=== PATIENT | female | born 1985 | race Caucasian/White ===

== ENCOUNTER → 2016-10-06 | Outpatient (CLI) | payer BC ==
[2016-10-06 15:57] LABS: EKG EKG PERFORMED
[2016-10-06 16:56] LABS: Basophils % (A) 0 %; CHCM 32.2; Eosinophils # (A) 0.2 k/uL (0-0.7); Eosinophils % (A) 2 %; HCT 35.3 % (34.0-46.0); HDW 3.08; HGB 11.6 gm/dL (11.4-16.0); Hypochromasia Slight; Luc # (Auto) 0.12; Luc % (Auto) 1; Lymphocytes # (A) 2.3 k/uL (1.0-4.8); Lymphocytes % (A) 24 %; MCH 25.7 pg (25.0-35.0); MCHC 32.9 g/dL (31.0-37.0); MCV 77.9 fL (80.0-100.0); Mean Platelet Volume 7.2; Monocytes # (A) 0.3 k/uL (0-1.0); Monocytes % (A) 3 %; Neutrophils # (A) 6.6 k/uL (1.3-7.7); Neutrophils % (A) 69 %; RBC 4.53 m/uL (3.80-5.40); WBC 9.6 k/uL (3.8-10.6); WBC (Perox) 10.27
[2016-10-06 17:12] LABS: Anion Gap 12 mmol/L; Blood Urea Nitrogen 19 mg/dL (7-17); Carbon Dioxide 24 mmol/L (22-30); Chloride 105 mmol/L (98-107); Glucose 96 mg/dL (74-99); Non-African American GFR(MDRD) 51 (>60 ml/min/1.73 sqM); Potassium 5.2 mmol/L (3.5-5.1); Sodium 141 mmol/L (137-145)
== END | disposition home or self-care (01) ==
LOC: LABPAT 15:46
PROVIDERS: ATTEND Obstetrics & Gynecology
DX: Z01.810 Encounter for preprocedural cardiovascular examination (principal); Z01.812 Encounter for preprocedural laboratory examination; I10 Essential (primary) hypertension
CPT/HCPCS: 80051; 82565; 82947; 84520; 85025; 86850; 86900; 86901; 87086; 93005

== ENCOUNTER 2016-10-16 07:54 | Observation (INO) | payer BC ==
[2016-10-12 09:20] VITALS: BMI 38.4
--- NOTE | 2016-10-15 10:07 | HP ---
DATE OF ADMISSION: HISTORY OF PRESENT ILLNESS: The patient is a 31-year-old 0, para 0 who initially presented to the office months ago complaining of symptoms of significant uterine prolapse. She carries a history of renal failure and subsequent renal transplant from which she is doing well, but is on her routine immunosuppressive drugs. I was at the initial visit unable to document significant prolapse and reassured her. She nonetheless continued to persist and return to the office recently with a picture of the cervix appearing at the opening of the vagina. At that time, a tenaculum was applied to the cervix and gentle downward pressure applied at which time she was noted to have significant prolapse to at least grade 3. She is not now nor will she ever be interested in childbearing and has had a tubal ligation in place for more than 10 years secondary to her renal failure and subsequent transplant as well as continued immunosuppression. She is asking for definitive treatment with vaginal hysterectomy. PAST MEDICAL HISTORY: Significant for hypertension, anemia, renal failure. PAST SURGICAL HISTORY: Significant for adenoidectomy at age 14. She had a fistula repaired for ongoing dialysis. She had her renal transplant a number of years ago and had underwent a laparoscopic tubal ligation in 2005. OBSTETRICAL HISTORY: 0, para 0 with a tubal ligation in place for contraception. GYNECOLOGIC HISTORY: Unremarkable with no history of any infections to include STDs. FAMILY HISTORY: Noncontributory. SOCIAL HISTORY: The patient is and works as a nurse at [employer]. She is a nonsmoker and reports minimal to no alcohol. There are no other social concerns. Current medications include: 1. Allopurinol daily. 2. CellCept daily. 3. Cipro as needed. 4. Lopressor daily. 5. Lotrisone topical cream p.r.n. 6. Norvasc daily. 7. Omeprazole daily. 8. Prograf 1 mg daily. ALLERGIES: CODEINE caused hallucinations, NONSTEROIDALS including TORADOL as well as ULTRAM caused nausea and vomiting. REVIEW OF SYSTEMS: Confined to history of present illness. PHYSICAL EXAMINATION: Vital signs are stable and the patient is afebrile. In general, this is a moderately obese, white female in no acute distress. HEENT demonstrates PERRLA, EOMI. Her oropharynx is clear. Her neck is supple and without adenopathy and the thyroid is normal to palpation. Her heart has a regular rhythm and rate without murmur. Her lungs are clear to auscultation bilaterally in all marshall. Her abdomen is obese, nondistended, has normoactive bowel sounds, is soft, nontender, and without any palpable masses, hepatosplenomegaly or hernias. Her extremities are without any cyanosis, clubbing or significant edema and are nontender to palpation bilaterally. Pelvic examination demonstrates normal external genitalia and BUS with normal vaginal mucosa and cervix. There is no cervical motion tenderness. The uterus is 4 to 5 weeks in size, slightly anteverted, mobile, nontender, and normal in shape. Application of a tenaculum to the cervix demonstrates grade 3 uterine prolapse. ASSESSMENT AND PLAN: Grade 3 symptomatic uterine prolapse: We did discuss potential alternatives, and the patient has requested definitive therapy with vaginal hysterectomy. The risks and complications were discussed at length to include bleeding, bleeding requiring transfusion, infection, and injury to local structures to include the bowel, bladder and ureters. We discussed the issue of the ureters in detail given the history of a renal transplant for which her transplant doctor provided me with a diagram of placement of the kidney as well as ureteral placement within the bladder in the dome. These should not be in any particular danger from routine vaginal hysterectomy. She will be cleared by her kidney specialist prior to surgery. She has understood all of these concerns and does agree to proceed. We are scheduled for the morning of October 16, 2016.
[~2016-10-16 07:54] MED LIST: DEXAMETHASONE SOD PHOSPHATE 10 MG/ML 1 ML VIAL IV ONE; FAMOTIDINE 20 MG/2 ML VIAL IV PRN; LACTATED RINGERS 1,000 ML IV SCH; LIDOCAINE 1% 20 ML VIAL (10MG/ML) FOR IV START INTRADERMA PRN; MIDAZOLAM 2 MG/2 ML VIAL IV PRN; ONDANSETRON 4 MG/2 ML VIAL IVP ONE; ceFAZolin 2 GM in SODIUM CHLORIDE 0.9% 100 ML IVPB ONE
[2016-10-16] MEDS ORDERED: LIDOCAINE 1% 20 ML VIAL (10MG/ML) FOR IV START IV ONE (08:18)
[2016-10-16] MEDS ORDERED: HYDROmorphone (PF) 1 MG/ML ONE (09:52)
[2016-10-16] MEDS ORDERED: SUCCINYLCHOLINE CHLORIDE 100 MG/5 ML SYR IV ONE (09:52)
[2016-10-16] MEDS ORDERED: MIDAZOLAM 2 MG/2 ML VIAL ONE (09:52)
[2016-10-16] MEDS ORDERED: PROPOFOL 10 MG/ML 20 ML VIAL IV ONE (09:52)
[2016-10-16] MEDS ORDERED: fentaNYL (PF) 50 MCG/ML 2 ML AMP ONE (09:52)
[2016-10-16] MEDS ORDERED: VASOPRESSIN 20 UNIT/ML 1 ML VIAL SQ ONE (10:18)
[2016-10-16] MEDS ORDERED: BACITRACIN 500 UNIT/GM OINT 28.4 GM TUBE TOPICAL ONE (10:18)
[2016-10-16] MEDS ORDERED: LACTATED RINGERS 1,000 ML IV ONE (10:47)
[2016-10-16] MEDS ORDERED: SIMETHICONE 80 MG CHEWABLE PO PRN (11:05)
[2016-10-16] MEDS ORDERED: ONDANSETRON 4 MG/2 ML VIAL IVP PRN (11:05)
[2016-10-16] MEDS ORDERED: diphenhydrAMINE 50 MG/ML 1 ML VIAL IVP PRN (11:05)
[2016-10-16] MEDS ORDERED: METOCLOPRAMIDE 5 MG/ML 2 ML VIAL IVP PRN (11:05)
[2016-10-16] MEDS: HYDROmorphone 1 MG/ML 1 ML SYRINGE IVP PRN ×4 (11:10→12:32)
[2016-10-16] MEDS ORDERED: HYDROcodone/APAP 5-325MG 1 EACH TAB PO PRN ×2 (11:11)
[2016-10-16] MEDS ORDERED: NALOXONE 0.4 MG/ML 1 ML VIAL IV PRN (11:12)
--- NOTE | 2016-10-16 11:24 | P.OP ---
Date of Procedure: 10/16/16 Preoperative Diagnosis: #1. Symptomatic uterine prolapse Postoperative Diagnosis: Same plus #2. Fibroid uterus Procedure(s) Performed: Vaginal hysterectomy Anesthesia: MATTYA Surgeon: Pastor García Comb Setter #1: Coty Arango Estimated Blood Loss (ml): 150 IV fluids (ml): 1,500 Urine output (ml): 100 Pathology: other (Uterus) Condition: stable Disposition: PACU Operative Findings: pelvic examination demonstrated a roughly 5 week of uterus with cervical prolapse to +3 station or further. Intraoperatively, the uterus was found to be markedly larger than appreciated on pelvic examination. The size was closer to 7-8 weeks' size with multiple uterine fibroids in the fundus of the uterus. The bilateral ovaries appeared normal. There was no significant degree of cystocele or rectocele. Description of Procedure: The patient was prepped and draped in usual fashion after general endotracheal anesthesia was admission by the anesthesiologist. A weighted speculum was placed and the cervix grasped with a single-tooth tenaculum. The cervicovaginal mucosa was infused with diluted vasopressin solution after draining the bladder of approximately 50 mL of clear sahara urine. The cervicovaginal mucosa was incised circumferentially and reflected distally both bluntly and sharply. The posterior peritoneum was identified and incised sharply with the Mercado scissors then tagged with a stitch of 2-0 Vicryl for later use. The short weighted speculum was replaced with the long weighted speculum. The uterosacral ligaments were clamped bilaterally with the curved Shakira-Darwin clamps, cut, and suture-ligated with a transfixion stitch of 0 Vicryl. Serial bites were taken up the cardinal ligament towards the utero- ovarian ligaments on each side staying very close to the uterus using curved Shakira-Darwin clamps. Each pedicle was cut and suture-ligated with a transfixion stitch of 0 Vicryl. The bladder peritoneum had been reflected distally early on in the dissection. After approximately 4 or 5 bites bilaterally, the fundus of the uterus was grasped posteriorly with a tenaculum and the inverted posteriorly allowing isolation of the utero-ovarian pedicles on each side. The bladder peritoneum was then opened sharply to isolate each pedicle. They were each clamped with curved Shakira-Darwin clamps, cut, and suture-ligated with a transfixion stitch of 0 Vicryl followed by a free tie of 0 Vicryl. Each was carefully examined and hemostasis was excellent prior to releasing them. The ovaries were also examined. There is a small spot of bleeding on one of the capsules of the ovary, possibly from ovulation which was cauterized prior to releasing and into the abdomen. The long weighted speculum was replaced with the short weighted speculum and the parietal peritoneum closed with the previously placed stitch of 2-0 Vicryl in a pursestring fashion. The vascular pedicles were reexamined and found to be hemostatic. There was some ongoing bleeding at the margin of the cuff. This would be controlled with closure of the cuff. The uterosacral ligaments were passed through the opposite the side uterosacral ligament and mucosa bilaterally in a modified Brenner's culdoplasty. The remaining open vaginal mucosa was closed with interrupted [id number] stitches of 0 Vicryl. After removal of the weighted speculum, there was a spot noted at the hymeneal ring posteriorly that was lacerated and bleeding slightly. Was made hemostatic with the Bovie and a single [id number] stitch of 2-0 Vicryl. A Landon catheter was placed demonstrate in clear sahara urine. The vagina was then packed with one-inch iodoform gauze covered with bacitracin ointment. Estimated blood loss for the case is approximately 150 mL. There were no complications. All sponge, instrument, and needle counts were correct. The patient tolerated the procedure well and proceeded to the recovery room in stable condition.
[2016-10-16] MEDS ORDERED: SODIUM CHLORIDE 0.9% 1,000 ML IV ONE (12:30)
[2016-10-16] MEDS: HYDROmorphone PCA 5 MG/25 ML SYRINGE IV PRN (12:55)
[2016-10-16] MEDS: LACTATED RINGERS 1,000 ML IV SCH ×2 (20:26→20:52)
[2016-10-17] MEDS: SENNOSIDES-DOCUSATE SODIUM 1 EACH TAB PO SCH ×2 (00:05→08:29)
[2016-10-17] MEDS: HYDROmorphone PCA 5 MG/25 ML SYRINGE IV PRN (00:36)
[2016-10-17] MEDS: LACTATED RINGERS 1,000 ML IV SCH (04:07)
[2016-10-17 08:03] LABS: Basophils % (A) 0 %; CH 25.4; CHCM 31.1; Eosinophils % (A) 0 %; HDW 2.79; Hypochromasia Moderate; Luc # (Auto) 0.12; Luc % (Auto) 1; Lymphocytes % (A) 21 %; MCH 26.1 pg (25.0-35.0); MCHC 31.7 g/dL (31.0-37.0); MCV 82.1 fL (80.0-100.0); Mean Platelet Volume 8.2; Monocytes # (A) 0.3 k/uL (0-1.0); Monocytes % (A) 3 %; Neutrophils # (A) 7.1 k/uL (1.3-7.7); Neutrophils % (A) 75 %; RBC 3.78 m/uL (3.80-5.40); RDW 14.3 % (11.5-15.5); WBC 9.5 k/uL (3.8-10.6); WBC (Perox) 9.84
[2016-10-17 08:04] LABS: HGB 9.8 gm/dL (11.4-16.0)
[2016-10-17 08:18] LABS: Calcium 9.4 mg/dL (8.4-10.2); Potassium 4.4 mmol/L (3.5-5.1); Total Bilirubin 0.6 mg/dL (0.2-1.3); Total Protein 6.2 g/dL (6.3-8.2)
[2016-10-17 08:33] VITALS: RESP 14
[2016-10-17] MEDS ORDERED: ACETAMINOPHEN TAB 325 MG TAB PO PRN (11:09)
--- NOTE | 2016-10-17 11:14 | P.DS ---
Providers Date of admission: 10/16/16 19:26 Expected date of discharge: 10/17/16 Attending physician: Pastor García Primary care physician: Janes Kang - Discharge Diagnosis(es) (1) Renal transplant recipient Current Visit: Yes Status: Acute (2) Uterine prolapse Current Visit: Yes Status: Acute (3) Fibroid uterus Current Visit: Yes Status: Acute Hospital Course: The patient is a 31-year-old 0 para 0 who presented to the office the approximately 9-12 months ago complaining of symptomatic prolapse. She reported that she could feel the cervix at the opening of the vagina. Examination in the office failed to demonstrate any significant prolapse at that time she returned on another 1 or 2 occasions at which time similar complaints were noted but no findings on pelvic exam. At her most recent visit she presented with a cell phone picture of her cervix protruding from the vagina at which time I opted to place a tenaculum on the cervix and was able to demonstrate significant descensus to grade 3+. Given her history of renal transplant and tubal ligation many years ago, she asked for definitive treatment with vaginal hysterectomy. She denies any desire for potential childbearing. She was taken to the operating room where she underwent a vaginal hysterectomy and the relatively uncomplicated fashion. The uterus was somewhat larger intraoperatively than was anticipated or perceived with preop pelvic examination. Nonetheless, the procedure was uncomplicated in nature. The bilateral ovaries appeared normal. Her postoperative course was also unremarkable. She continued with aggressive IV hydration in the postoperative phase and her pain was controlled with a METAPHYSICS TEACHER. This was removed on the morning of postoperative day #1 at which time she was able to tolerate her pain with oral pain medications. She was tolerating regular diet by the morning of postoperative day #1 and was ambulatory as well. She was deemed stable for discharge by the afternoon or early evening of postoperative day #1 was discharged home to follow-up in the office in 2 weeks for a recheck and 6 weeks routinely. Her renal function on postoperative day #1 was noted to remain stable as were all of her other labs. Discharge instructions included calling for any significantly increased vaginal bleeding, pain, fever, urinary or GI concerns, or anything else that concerned her. She is additionally instructed to have nothing in the vagina for at least 6 weeks time to include intercourse and to be cautious with lifting as it might cause discomfort. She was last instructed to do no driving until off of all pain medications, or 2 weeks' time , whichever came first. She understood her instructions and agrees to follow up as noted above. Discharge medications included all of her usual home medications and immunosuppressants. She was provided with a prescription for [place] 5/325 mg, 1-2 by mouth every 6 hours when necessary pain, #30 dispensed with no refills. Discharge hemoglobin and hematocrit were 9.8 and 31.0 respectively. Discharge BUN/creatinine and creatinine were 17 and 1.27 respectively. Procedures: #1. Vaginal hysterectomy Patient Condition at Discharge: Stable Plan - Discharge Summary Discharge Medication List Albuterol Inhaler [Ventolin Hfa Inhaler] 2 puff INHALATION DAILY PRN 10/12/16 [ History] Allopurinol [Zyloprim] 100 mg PO HS 10/12/16 [History] Ciprofloxacin HCl [Cipro] 250 mg PO DAILY 10/12/16 [History] Metoprolol Tartrate [Lopressor] 50 mg PO BID 10/12/16 [History] Mycophenolate Mofetil [Cellcept] 1 gm PO BID 10/12/16 [History] Omeprazole 20 mg PO DAILY 10/12/16 [History] Tacrolimus [Prograf] 3 mg PO BID 10/12/16 [History] amLODIPine [Norvasc] 2.5 mg PO 1400 10/12/16 [History] Follow up Appointment(s)/Referral(s): Pastor García MD [STAFF PHYSICIAN] - 2 Weeks Patient Instructions/Handouts: *Surgery [facility] - Scopalamine Patch Instructions Discharge Disposition: HOME SELF-CARE
[2016-10-17 15:26] VITALS: BP 117/78; PULSE 78; TEMP 98.7
== END 2016-10-17 15:41 | disposition home or self-care (01) ==
LOC: OR 07:54 → 4FBP 11:22 → OR 19:26
PROVIDERS: ADMIT Obstetrics & Gynecology; ATTEND Obstetrics & Gynecology
DX: N81.2 Incomplete uterovaginal prolapse (principal); D25.9 Leiomyoma of uterus, unspecified; Z94.0 Kidney transplant status; I10 Essential (primary) hypertension; Z79.899 Other long term (current) drug therapy; Z88.5 Allergy status to narcotic agent; Z88.8 Allergy status to other drugs, medicaments and biological substances; E66.9 Obesity, unspecified
CPT/HCPCS: 81025; 80053; 84132; 85025; 88307; 58290; G0378 ×2; J2250; J1100; J2765; J0690; J2405; J3010; J1170 ×3; J0330; J2704; 86850; 86900; 86901; 96361; 96374

== ENCOUNTER → 2016-10-27 | Outpatient (CLI) | payer BC ==
[2016-10-27 17:23] LABS: Basophils % (A) 0 %; CHCM 31.6; Eosinophils # (A) 0.2 k/uL (0-0.7); Eosinophils % (A) 2 %; HCT 34.5 % (34.0-46.0); Hypochromasia Slight; Luc # (Auto) 0.14; Luc % (Auto) 2; Lymphocytes # (A) 1.8 k/uL (1.0-4.8); Lymphocytes % (A) 21 %; MCH 25.3 pg (25.0-35.0); MCV 79.3 fL (80.0-100.0); Mean Platelet Volume 9.5; Monocytes # (A) 0.3 k/uL (0-1.0); Monocytes % (A) 4 %; Neutrophils # (A) 6.1 k/uL (1.3-7.7); Neutrophils % (A) 72 %; RBC 4.35 m/uL (3.80-5.40); RDW 13.4 % (11.5-15.5); WBC 8.5 k/uL (3.8-10.6); WBC (Perox) 9.03
[2016-10-27 17:32] LABS: Calcium 10.1 mg/dL (8.4-10.2); Phosphorous 3.5 mg/dL (2.5-4.5); Potassium 4.6 mmol/L (3.5-5.1); Total Bilirubin 0.6 mg/dL (0.2-1.3); Total Protein 7.7 g/dL (6.3-8.2)
== END ==
LOC: LABWHC1 17:00
PROVIDERS: ATTEND Physician Assistant Medical
DX: Z48.22 Encounter for aftercare following kidney transplant (principal); Z94.0 Kidney transplant status
CPT/HCPCS: 36415; 80053; 84100; 85025

== ENCOUNTER → 2017-02-10 | Outpatient (CLI) | payer BC ==
[2017-02-10 11:58] LABS: Basophils % (A) 0 %; CH 25.9; CHCM 31.7; Eosinophils # (A) 0.1 k/uL (0-0.7); Eosinophils % (A) 1 %; HCT 35.1 % (34.0-46.0); HDW 2.79; HGB 10.6 gm/dL (11.4-16.0); Hypochromasia Slight; Luc # (Auto) 0.09; Luc % (Auto) 1; Lymphocytes # (A) 2.2 k/uL (1.0-4.8); Lymphocytes % (A) 27 %; MCH 24.8 pg (25.0-35.0); MCHC 30.3 g/dL (31.0-37.0); MCV 81.9 fL (80.0-100.0); Mean Platelet Volume 10.1; Monocytes # (A) 0.3 k/uL (0-1.0); Monocytes % (A) 3 %; Neutrophils # (A) 5.5 k/uL (1.3-7.7); Neutrophils % (A) 67 %; RBC 4.28 m/uL (3.80-5.40); RDW 14.9 % (11.5-15.5); WBC 8.1 k/uL (3.8-10.6); WBC (Perox) 8.69
[2017-02-10 12:29] LABS: Calcium 9.9 mg/dL (8.4-10.2); Total Bilirubin 0.5 mg/dL (0.2-1.3); Total Protein 6.8 g/dL (6.3-8.2)
== END ==
LOC: LABWHC1 11:37
PROVIDERS: ATTEND Physician Assistant Medical
DX: Z48.22 Encounter for aftercare following kidney transplant (principal); Z94.0 Kidney transplant status
CPT/HCPCS: 36415; 80053; 80197; 82465; 82570; 84100; 84156; 85025

== ENCOUNTER → 2018-02-28 | Outpatient (CLI) | payer BC ==
[2018-02-28 11:05] LABS: Basophils % (A) 0 %; Eosinophils # (A) 0.2 k/uL (0-0.7); Eosinophils % (A) 2 %; HCT 35.9 % (34.0-46.0); HGB 11.5 gm/dL (11.4-16.0); Lymphocytes # (A) 2.7 k/uL (1.0-4.8); Lymphocytes % (A) 29 %; MCH 26.2 pg (25.0-35.0); MCV 81.9 fL (80.0-100.0); Mean Platelet Volume 7.7; Monocytes # (A) 0.3 k/uL (0-1.0); Monocytes % (A) 3 %; Neutrophils # (A) 6.1 k/uL (1.3-7.7); Neutrophils % (A) 65 %; Platelet Count 226 k/uL (150-450); RBC 4.39 m/uL (3.80-5.40); RDW 13.8 % (11.5-15.5); WBC 9.4 k/uL (3.8-10.6)
[2018-02-28 11:20] LABS: Albumin 4.4 g/dL (3.5-5.0); Calcium 9.9 mg/dL (8.4-10.2); Potassium 4.2 mmol/L (3.5-5.1); Total Bilirubin 0.4 mg/dL (0.2-1.3); Total Protein 7.1 g/dL (6.3-8.2)
[2018-02-28 17:22] LABS: Iron Saturation 11.93 (12.00-45.00)
[2018-02-28 17:29] LABS: Vitamin D 25 Hydroxy 22.2 ng/mL (30.0-100.0)
== END | disposition home or self-care (01) ==
LOC: LABWHC1 10:09
PROVIDERS: ATTEND Internal Medicine
DX: D50.9 Iron deficiency anemia, unspecified (principal); E55.9 Vitamin D deficiency, unspecified; Z94.0 Kidney transplant status
CPT/HCPCS: 36415; 80053; 80197; 82306; 82728; 83540; 83550; 85025

== ENCOUNTER → 2018-04-07 | Outpatient (CLI) | payer BC ==
[2018-04-07 14:41] LABS: HCT 36.9 % (34.0-46.0); HGB 11.8 gm/dL (11.4-16.0); MCH 26.5 pg (25.0-35.0); MCV 82.9 fL (80.0-100.0); Mean Platelet Volume 8.4; Platelet Count 211 k/uL (150-450); RBC 4.45 m/uL (3.80-5.40); RDW 13.6 % (11.5-15.5); WBC 9.2 k/uL (3.8-10.6)
[2018-04-07 14:59] LABS: Albumin 4.3 g/dL (3.5-5.0); Calcium 10.3 mg/dL (8.4-10.2); Phosphorus 4.2 mg/dL (2.5-4.5); Potassium 4.5 mmol/L (3.5-5.1); Total Bilirubin 0.5 mg/dL (0.2-1.3); Total Protein 7.1 g/dL (6.3-8.2)
[2018-04-07 15:10] LABS: Creatinine,Urine Random 81.2 mg/dL
[2018-04-07 18:31] LABS: Iron Saturation 14.35 (12.00-45.00)
[2018-04-07 18:39] LABS: Vitamin D 25 Hydroxy 20.4 ng/mL (30.0-100.0)
[2018-04-07 19:09] LABS: Parathyroid Hormone Intact 60.3 pg/mL (14.0-72.0)
[2018-04-07 20:52] LABS: Hemoglobin A1C 5.5 % (4.0-6.0)
== END | disposition home or self-care (01) ==
LOC: LABWHC1 13:39
PROVIDERS: ATTEND Internal Medicine Nephrology
DX: Z48.22 Encounter for aftercare following kidney transplant (principal); Z94.0 Kidney transplant status
CPT/HCPCS: 36415; 80053; 80061; 80197; 82306; 82570; 82728; 83036; 83540; 83550; 83970; 84100; 84156; 85027

== ENCOUNTER → 2018-06-16 | Outpatient (CLI) | payer BC ==
[2018-06-16 16:19] LABS: Basophils % (A) 0 %; Eosinophils # (A) 0.2 k/uL (0-0.7); Eosinophils % (A) 2 %; HCT 42.9 % (34.0-46.0); HGB 13.6 gm/dL (11.4-16.0); Hypochromasia Slight; Lymphocytes # (A) 2.1 k/uL (1.0-4.8); Lymphocytes % (A) 25 %; MCH 27.2 pg (25.0-35.0); MCHC 31.7 g/dL (31.0-37.0); MCV 85.7 fL (80.0-100.0); Mean Platelet Volume 7.8; Monocytes # (A) 0.3 k/uL (0-1.0); Monocytes % (A) 3 %; Neutrophils # (A) 5.6 k/uL (1.3-7.7); Neutrophils % (A) 68 %; Platelet Count 221 k/uL (150-450); RBC 5.01 m/uL (3.80-5.40); RDW 13.4 % (11.5-15.5); WBC 8.3 k/uL (3.8-10.6)
[2018-06-17 02:39] LABS: Iron Saturation 21.07 (12.00-45.00)
[2018-06-17 02:48] LABS: Vitamin D 25 Hydroxy 33.4 ng/mL (30.0-100.0)
[2018-06-17 02:52] LABS: ALT 22 U/L (8-44); AST 19 U/L (13-35); Albumin/Globulin Ratio 2.35 (1.20-2.10); Alkaline Phosphatase 81 U/L (41-126); Calcium 10.1 mg/dL (8.7-10.3); Carbon Dioxide 22.3 mmol/L (21.6-31.8); Chloride 107 mmol/L (96-109); Cholesterol 240 mg/dL (0-200); Glucose 105 mg/dL (70-110); Phosphorus 2.9 mg/dL (2.4-5.1); Potassium 4.3 mmol/L (3.5-5.5); Sodium 139 mmol/L (135-145); Total Bilirubin 0.5 mg/dL (0.3-1.2); Total Protein 6.7 g/dL (6.2-8.2)
[2018-06-17 04:24] LABS: Creatinine,Urine Random 94.6 mg/dL; Total Protein,Urine Random 61.5 mg/dL (0.0-13.5)
[2018-06-17 05:15] LABS: Hemoglobin A1C 5.6 % (4.0-6.0)
[2018-06-17 05:19] LABS: Parathyroid Hormone Intact 74.5 pg/mL (14.0-72.0)
== END ==
LOC: LABWHC1 15:25
PROVIDERS: ATTEND Internal Medicine Nephrology
DX: Z48.22 Encounter for aftercare following kidney transplant (principal); Z94.0 Kidney transplant status
CPT/HCPCS: 36415; 80053; 80061; 80197; 82306; 82570; 82728; 83036; 83540; 83550; 83721; 83970; 84100; 84156; 85025

== ENCOUNTER → 2019-01-19 | Outpatient (CLI) | payer BC ==
[2019-01-19 17:08] LABS: Basophils % (A) 0 %; Eosinophils # (A) 0.3 k/uL (0-0.7); Eosinophils % (A) 3 %; HCT 37.4 % (34.0-46.0); HGB 12.1 gm/dL (11.4-16.0); Lymphocytes # (A) 2.1 k/uL (1.0-4.8); Lymphocytes % (A) 21 %; MCH 26.5 pg (25.0-35.0); MCHC 32.2 g/dL (31.0-37.0); MCV 82.2 fL (80.0-100.0); Mean Platelet Volume 8.4; Monocytes # (A) 0.3 k/uL (0-1.0); Monocytes % (A) 3 %; Neutrophils # (A) 7.2 k/uL (1.3-7.7); Neutrophils % (A) 72 %; Platelet Count 218 k/uL (150-450); RBC 4.55 m/uL (3.80-5.40); RDW 13.4 % (11.5-15.5)
[2019-01-19 22:29] LABS: Parathyroid Hormone Intact 56.9 pg/mL (14.0-72.0)
[2019-01-20 00:07] LABS: Creatinine,Urine Random 71.3 mg/dL
[2019-01-20 00:12] LABS: Iron Saturation 13.38 (12.00-45.00)
[2019-01-20 01:07] LABS: African American GFR (CKD) 62.9 (60.0-200.0); Albumin 4.4 g/dL (3.80-4.90); Albumin/Globulin Ratio 2.2 (1.60-3.17); Anion Gap 12.5 mmol/L (4.00-12.00); BUN/Creat Ratio 15.38 Ratio (12.00-20.00); Calcium 9.9 mg/dL (8.7-10.3); Carbon Dioxide 20.5 mmol/L (21.6-31.8); LDL Cholesterol,Calculated 70.4 mg/dL (0.0-131.0); Phosphorus 3.3 mg/dL (2.4-5.1); Total Bilirubin 0.4 mg/dL (0.3-1.2); Total Protein 6.4 g/dL (6.2-8.2); VLDL Calculation 50.6 mg/dL (5.00-40.00)
[2019-01-20 01:10] LABS: Total Protein,Urine Random 25.1 mg/dL (0.0-13.5)
[2019-01-20 01:46] LABS: Hemoglobin A1C 5.6 % (4.0-6.0)
== END | disposition home or self-care (01) ==
LOC: LABWHC1 16:09
PROVIDERS: ATTEND Nurse Practitioner Acute Care
DX: E78.2 Mixed hyperlipidemia (principal); N28.9 Disorder of kidney and ureter, unspecified; D63.8 Anemia in other chronic diseases classified elsewhere; Z94.0 Kidney transplant status; Z01.89 Encounter for other specified special examinations
CPT/HCPCS: 36415; 80053; 80061; 80197; 82570; 82728; 83036; 83540; 83550; 83970; 84100; 84156; 85025

== ENCOUNTER → 2019-05-12 | Outpatient (CLI) | payer BC ==
[2019-05-12 14:53] LABS: Basophils % (A) 0 %; Eosinophils # (A) 0.2 k/uL (0-0.7); Eosinophils % (A) 2 %; HCT 39.7 % (34.0-46.0); Lymphocytes # (A) 2.6 k/uL (1.0-4.8); Lymphocytes % (A) 26 %; MCH 27.4 pg (25.0-35.0); MCHC 32.7 g/dL (31.0-37.0); MCV 83.7 fL (80.0-100.0); Mean Platelet Volume 8.1; Monocytes # (A) 0.4 k/uL (0-1.0); Monocytes % (A) 4 %; Neutrophils # (A) 6.6 k/uL (1.3-7.7); Neutrophils % (A) 67 %; Platelet Count 239 k/uL (150-450); RBC 4.74 m/uL (3.80-5.40); RDW 13.2 % (11.5-15.5)
[2019-05-12 18:42] LABS: Total Protein,Urine Random 45.2 mg/dL (0.0-13.5)
[2019-05-12 18:52] LABS: African American GFR (CKD) 57.5 (60.0-200.0); Albumin 4.8 g/dL (3.80-4.90); Albumin/Globulin Ratio 2.53 (1.60-3.17); Anion Gap 8.4 mmol/L (4.00-12.00); Calcium 9.7 mg/dL (8.7-10.3); Carbon Dioxide 26.6 mmol/L (21.6-31.8); Globulin 1.9 g/dL (1.6-3.3); Potassium 3.4 mmol/L (3.5-5.5); Total Bilirubin 0.4 mg/dL (0.3-1.2); Total Protein 6.7 g/dL (6.2-8.2)
[2019-05-12 21:13] LABS: Creatinine,Urine Random 101.1 mg/dL
== END | disposition home or self-care (01) ==
LOC: LABWHC1 13:55
PROVIDERS: ATTEND Nurse Practitioner Acute Care
DX: Z01.89 Encounter for other specified special examinations (principal); N18.9 Chronic kidney disease, unspecified; E78.2 Mixed hyperlipidemia; Z94.0 Kidney transplant status
CPT/HCPCS: 36415; 80053; 80197; 82570; 84156; 85025

== ENCOUNTER → 2020-01-22 | Outpatient (CLI) | payer BC ==
[2020-01-22 15:51] LABS: Protein/Creatinine Ratio,Urine 0.528
[2020-01-22 16:44] LABS: Basophils % (A) 0 %; Eosinophils # (A) 0.2 k/uL (0-0.7); Eosinophils % (A) 2 %; HCT 40.7 % (34.0-46.0); HGB 12.9 gm/dL (11.4-16.0); Lymphocytes # (A) 2.3 k/uL (1.0-4.8); Lymphocytes % (A) 24 %; MCH 27.1 pg (25.0-35.0); MCHC 31.6 g/dL (31.0-37.0); MCV 85.6 fL (80.0-100.0); Mean Platelet Volume 9.3; Monocytes # (A) 0.4 k/uL (0-1.0); Monocytes % (A) 5 %; Neutrophils # (A) 6.6 k/uL (1.3-7.7); Neutrophils % (A) 68 %; Platelet Count 197 k/uL (150-450); RBC 4.75 m/uL (3.80-5.40); RDW 13.1 % (11.5-15.5); WBC 9.7 k/uL (3.8-10.6)
[2020-01-23 02:14] LABS: African American GFR (CKD) 68.8 (60.0-200.0); Albumin 4.6 g/dL (3.80-4.90); Albumin/Globulin Ratio 2.19 (1.60-3.17); Anion Gap 9.1 mmol/L (4.00-12.00); BUN/Creat Ratio 14.17 Ratio (12.00-20.00); Calcium 9.6 mg/dL (8.7-10.3); Carbon Dioxide 22.9 mmol/L (21.6-31.8); Globulin 2.1 g/dL (1.6-3.3); Non-African American GFR(CKD) 59.3 (60.0-200.0); Phosphorus 2.7 mg/dL (2.4-5.1); Potassium 4.5 mmol/L (3.5-5.5); Total Bilirubin 0.6 mg/dL (0.3-1.2); Total Protein 6.7 g/dL (6.2-8.2)
== END | disposition home or self-care (01) ==
LOC: LABWHC1 14:32
PROVIDERS: ATTEND Nurse Practitioner Acute Care
DX: Z48.22 Encounter for aftercare following kidney transplant (principal); Z94.0 Kidney transplant status
CPT/HCPCS: 36415; 80053; 80197; 82465; 82570; 84100; 84156; 85025

== ENCOUNTER → 2020-09-23 | Outpatient (CLI) | payer BC ==
[2020-09-23 15:01] LABS: Appearance,Urine Clear (Clear); Bacteria,Urine Few /hpf; Bilirubin,Urine Negative (Negative); Blood,Urine Negative (Negative); Color,Urine Yellow; Glucose,Urine (UA) Negative (Negative); Ketones,Urine Negative (Negative); Leukocyte Esterase,Urine Negative (Negative); Mucus,Urine Rare /hpf; Nitrite,Urine Negative (Negative); PH, Urine 5.5 (5.0-8.0); Protein,Urine 1+ (Negative); RBC,Urine 1 /hpf (0-5); Specific Gravity,Urine 1.013 (1.001-1.035); Squamous Epithelial Cell,Urine 1 /hpf (0-4); Urobilinogen,Urine <2.0 mg/dL (<2.0); WBC,Urine 1 /hpf (0-5)
[2020-09-23 18:17] LABS: Basophils # (A) 0.03 X 10*3/uL (0.00-0.10); Basophils % (A) 0.3 %; Eosinophils # (A) 0.23 X 10*3/uL (0.04-0.35); Eosinophils % (A) 2.4 %; HCT 41.2 % (37.2-46.3); Lymphocytes # (A) 2.72 X 10*3/uL (0.90-5.00); Lymphocytes % (A) 27.8 %; MCHC 31.6 g/dL (32.0-37.0); MCV 85.5 fL (80.0-97.0); Mean Platelet Volume 11.7 fL (9.5-12.2); Monocytes # (A) 0.41 X 10*3/uL (0.20-1.00); Monocytes % (A) 4.2 %; Neutrophils # (A) 6.34 X 10*3/uL (1.80-7.70); Neutrophils % (A) 64.8 %; Platelet Count 259 X 10*3/uL (140-440); RBC 4.82 X 10*6/uL (4.10-5.20); RDW 12.9 % (11.5-14.5); WBC 9.78 X 10*3/uL (4.50-10.00)
[2020-09-23 19:31] LABS: Albumin 4.9 g/dL (3.80-4.90); Albumin/Globulin Ratio 2.23 (1.60-3.17); Anion Gap 12.1 mmol/L (4.00-12.00); BUN/Creat Ratio 13.08 Ratio (12.00-20.00); Calcium 10.5 mg/dL (8.7-10.3); Carbon Dioxide 21.9 mmol/L (21.6-31.8); Chol/HDL Ratio 5.47; Globulin 2.2 g/dL (1.6-3.3); LDL Cholesterol,Calculated 86.2 mg/dL (0.0-131.0); Non-African American GFR(CKD) 53.5 (60.0-200.0); Potassium 4.3 mmol/L (3.5-5.5); Total Bilirubin 0.5 mg/dL (0.2-1.2); Total Protein 7.1 g/dL (6.2-8.2); Uric Acid 8.1 mg/dL (2.9-7.7); VLDL Calculation 65.8 mg/dL (5.00-40.00)
== END | disposition home or self-care (01) ==
LOC: LABWHC1 13:23
PROVIDERS: ATTEND Internal Medicine
DX: M10.9 Gout, unspecified (principal); Z94.0 Kidney transplant status
CPT/HCPCS: 36415; 80053; 80061; 80197; 81001; 84550; 85025

== ENCOUNTER → 2020-11-28 | Outpatient (CLI) | payer BC ==
[2020-11-28 15:36] LABS: Creatinine,Urine Random 82.7 mg/dL; Protein/Creatinine Ratio,Urine 0.447
[2020-11-28 15:40] LABS: Appearance,Urine Clear (Clear); Bilirubin,Urine Negative (Negative); Blood,Urine Negative (Negative); Color,Urine Light Yellow; Glucose,Urine (UA) Negative (Negative); Ketones,Urine Negative (Negative); Leukocyte Esterase,Urine Negative (Negative); Nitrite,Urine Negative (Negative); PH, Urine 5.5 (5.0-8.0); Protein,Urine Trace (Negative); Specific Gravity,Urine 1.011 (1.001-1.035); Urobilinogen,Urine <2.0 mg/dL (<2.0)
[2020-11-28 23:39] LABS: Basophils # (A) 0.02 X 10*3/uL (0.00-0.10); Basophils % (A) 0.2 %; Eosinophils # (A) 0.23 X 10*3/uL (0.04-0.35); Eosinophils % (A) 2.8 %; HGB 11.8 g/dL (12.0-15.0); Lymphocytes # (A) 2.24 X 10*3/uL (0.90-5.00); Lymphocytes % (A) 27.7 %; MCH 26.9 pg (27.0-32.0); MCHC 31.1 g/dL (32.0-37.0); MCV 86.6 fL (80.0-97.0); Mean Platelet Volume 12.5 fL (9.5-12.2); Monocytes # (A) 0.35 X 10*3/uL (0.20-1.00); Monocytes % (A) 4.3 %; Neutrophils % (A) 64.5 %; Platelet Count 202 X 10*3/uL (140-440); RBC 4.39 X 10*6/uL (4.10-5.20); RDW 13.6 % (11.5-14.5); WBC 8.08 X 10*3/uL (4.50-10.00)
[2020-11-29 08:40] LABS: African American GFR (CKD) 68.3 (60.0-200.0); Albumin 4.6 g/dL (3.80-4.90); Albumin/Globulin Ratio 1.92 (1.60-3.17); Anion Gap 13.9 mmol/L (4.00-12.00); BUN/Creat Ratio 14.17 Ratio (12.00-20.00); Calcium 9.4 mg/dL (8.7-10.3); Carbon Dioxide 20.1 mmol/L (21.6-31.8); Globulin 2.4 g/dL (1.6-3.3); Non-African American GFR(CKD) 58.9 (60.0-200.0); Total Bilirubin 0.5 mg/dL (0.2-1.2)
== END | disposition home or self-care (01) ==
LOC: LABWHC1 13:54
PROVIDERS: ATTEND Nurse Practitioner Acute Care
DX: Z94.0 Kidney transplant status (principal); N10 Acute pyelonephritis
CPT/HCPCS: 36415; 80053; 80197; 81003; 82465; 82570; 84100; 84156; 85025; 87086

== ENCOUNTER → 2022-03-23 | Outpatient (CLI) | payer BC ==
--- NOTE | 2022-03-23 14:58 | US ---
EXAMINATION TYPE: US abdomen complete DATE OF EXAM: 03/23/2022 COMPARISON: NONE CLINICAL HISTORY: 36-year-old female R10.84 GENERALIZED ABDOMINAL PAIN. Palpable area felt near umbil icus at site of multiple surgeries, lost 2 lbs in one month and felt abd was getting bigger, h/o righ t pelvic renal transplant TECHNIQUE: Multiple sonographic images of the abdomen are obtained. FINDINGS: EXAM MEASUREMENTS: Liver Length: 19.1 cm Gallbladder Wall: 0.3 cm CBD: 0.6 cm Spleen: 16.3 cm Right Kidney: atrophic Left Kidney: atrophic Right pelvic renal transplant: 14.3 x 5.7 x 6.4 cm Pancreas: wnl Liver: Mildly enlarged and echogenic. No focal lesion seen. Gallbladder: wnl Evidence for sonographic Rahman's sign: no CBD: wnl Spleen: wnl Right Kidney: too atrophic to visualize Left Kidney: too atrophic to visualize Upper IVC: wnl Abd Aorta: wnl INTEGRATED CIRCUITS INSPECTOR NOTES: Right renal transplant appears wnl, lateral cyst seen 1.5 x 1.2 x 0.9cm. No hydronephrosis. Palpable umbilicus area appears wnl with no signs of herniation or other focal abnormality IMPRESSION: 1. Patient's palpable site at the umbilicus shows no discrete sonographic abnormality. This area can be monitored clinically. 2. At least moderate hepatic steatosis. Correlate with LFTs, lipid profile, and patient risk factors. 3. Transplant right lower quadrant kidney. Atrophic belkofski kidneys.
== END | disposition home or self-care (01) ==
LOC: RADUSWWP 07:24
PROVIDERS: ATTEND Family Medicine
DX: Z00.01 Encounter for general adult medical examination with abnormal findings (principal); R10.84 Generalized abdominal pain; R14.0 Abdominal distension (gaseous)
CPT/HCPCS: 76700

== ENCOUNTER → 2022-07-23 | Outpatient (CLI) | payer BC ==
--- NOTE | 2022-07-24 07:12 | XR ---
EXAMINATION TYPE: XR chest 2V DATE OF EXAM: 07/23/2022 4:26 PM COMPARISON: Chest radiographs from 11/12/2010 TECHNIQUE: XR chest 2V Frontal and lateral views of the chest. CLINICAL INDICATION:Female, 37 years old with history of R059,R0602 COUGH,SOB; FINDINGS: Lungs/Pleura: There is no evidence of pleural effusion, focal consolidation, or pneumothorax. Pulmonary vascularity: Unremarkable. Heart/mediastinum: Cardiomediastinal silhouette is unremarkable. Musculoskeletal: No acute osseous pathology. Increased thoracic kyphosis. IMPRESSION: No acute cardiopulmonary disease/process.
== END | disposition home or self-care (01) ==
LOC: RADXRYALE 16:12
PROVIDERS: ATTEND Physician Assistant
DX: R05.9 Cough, unspecified (principal); R06.02 Shortness of breath
CPT/HCPCS: 71046

== ENCOUNTER → 2023-07-22 | Outpatient (CLI) | payer BC ==
--- NOTE | 2023-07-23 09:41 | CA ---
Transthoracic Echo Report Name: Tara Cox Age: 38 Gender: F : 1985 Exam Date: 07/22/2023 14:49 Exam Location: [facility] Ht (in): 68 Wt (lb): 245 Ordering Physician: Jairo Ryan DO Attending/Referring Phys: Ruma Taylor NPC Spd Manager Sydnie Guzmán RDCS Procedure CPT: Indications: I10 HTN Z94.0 HX KIDNEY TRANSPLANT Cardiac Hx: Technical Quality: Fair Contrast 1: Total Dose (mL): Contrast 2: Total Dose (mL): MEASUREMENTS (Male / Female) Normal Values 2D ECHO LV Diastolic Diameter PLAX 5.4 cm 4.2 - 5.9 / 3.9 - 5.3 cm LV Systolic Diameter PLAX 3.7 cm IVS Diastolic Thickness 0.9 cm 0.6 - 1.0 / 0.6 - 0.9 cm LVPW Diastolic Thickness 1.0 cm 0.6 - 1.0 / 0.6 - 0.9 cm LV Relative Wall Thickness 0.4 RV Internal Dim ED PLAX 3.1 cm LA Systolic Diameter LX 3.7 cm 3.0 - 4.0 / 2.7 - 3.8 cm LV Diastolic Volume MOD 4C 85.2 cm??? LV Systolic Volume MOD 4C 37.1 cm??? LV Ejection Fraction MOD 4C 56.5 % LV Cardiac Index MOD 4C 1676.1 cm???/min???m??? LV Diastolic Length 4C 9.3 cm LV Systolic Length 4C 7.3 cm LV Diastolic Volume MOD 2C 95.2 cm??? LV Systolic Volume MOD 2C 49.5 cm??? LV Ejection Fraction MOD 2C 47.9 % LV Cardiac Index MOD 2C 1587.8 cm???/min???m??? LV Diastolic Length 2C 8.5 cm LV Systolic Length 2C 6.6 cm LA Volume 54.5 cm??? 18 - 58 / 22 - 52 cm??? LA Volume Index 23.1 cm???/m??? 16 - 28 cm???/m??? M-MODE Aortic Root Diameter MM 3.6 cm MV E Point Septal Separation 0.5 cm DOPPLER AV Peak Velocity 189.2 cm/s AV Peak Gradient 14.3 mmHg AV Mean Velocity 133.4 cm/s AV Mean Gradient 7.9 mmHg AV Velocity Time Integral 40.0 cm MV Area PHT 4.2 cm??? Mitral E Point Velocity 96.8 cm/s Mitral A Point Velocity 80.9 cm/s Mitral E to A Ratio 1.2 MV Deceleration Time 179.2 ms TR Peak Velocity 246.2 cm/s TR Peak Gradient 24.2 mmHg Right Ventricular Systolic Press 28.1 mmHg FINDINGS Left Ventricle Left ventricular ejection fraction is estimated at 55 %. Mild left ventricular dilatation. Mildly increased posterior wall thickness. Right Ventricle Normal right ventricular size. Right ventricular systolic pressure within normal limits. Right Atrium Normal right atrial size. Left Atrium Mildly increased left atrial volume. Mildly increased left atrial area. Mitral Valve Structurally normal mitral valve. No mitral stenosis, regurgitation or prolapse. Aortic Valve Trileaflet aortic valve. No aortic valve stenosis or regurgitation. Small gradient accross AOV Tricuspid Valve Structurally normal tricuspid valve. Mild tricuspid regurgitation. Pulmonic Valve Structurally normal pulmonic valve. No pulmonic regurgitation. Pericardium No pericardial effusion. Aorta Normal size aortic root and proximal ascending aorta. CONCLUSIONS Normal LV size and systolic function Dictated because study was suboptimal acoustic windows Previewed by: Dr. Phuc Leal MD (Electronically Signed) Final Date: 23 July 2023 09:40
== END | disposition home or self-care (01) ==
LOC: RADECHMAIN 14:50
PROVIDERS: ATTEND Family Medicine
DX: I15.1 Hypertension secondary to other renal disorders (principal); I10 Essential (primary) hypertension; Z94.0 Kidney transplant status
CPT/HCPCS: 93306

== ENCOUNTER → 2025-01-09 | Outpatient (CLI) | payer OTHER ==
--- NOTE | 2025-01-10 10:35 | MR ---
INDICATION: Patient age:Female; 39 years old; Reason for study: M51.362,Z94.0; [facility]. COMPARISONS: No priors. TECHNIQUE: Multi planar, multi sequence imaging was performed utilizing: T1-weighted, T2-weighted, a nd turbo inversion recovery imaging of the lumbar spine. The patient was not given contrast. FINDINGS: The lumbar vertebral bodies do have preserved heights. No spondylolisthesis. Mild S-shaped scoliotic curvature of the visualized thoracolumbar spine. Levocurvature of the lumbar aspect with a pex at L3. Multilevel anterior osteophytosis of the upper lumbar spine. Mild multilevel disc desiccat ion is present without significant disc height loss. The conus medullaris and the distal spinal cord do appear unremarkable with regards to their signal intensity and morphology. L1-L2: No significant disc pathology is identified. The spinal canal and neural foramen are patent. L2-L3: Mild broad-based disc bulge. No significant spinal canal stenosis. No significant neural fora donald stenosis.. L3-L4: Small central disc protrusion with annular fissure. No significant spinal canal stenosis. No neural foraminal stenosis.. L4-L5: Central disc protrusion with caudal migration of disc material approximately 1 cm. No signific ant spinal canal stenosis identified. Mild bilateral facet arthropathy. No neural foraminal stenosis. L5-S1: The intervertebral disc appears round on its contour posteriorly without significant mass eff ect upon the thecal sac. Neural canals do remain patent. Other significant findings: Transplant kidney within the right lower quadrant. Atrophic bilateral jerry helena kidneys IMPRESSION: Multilevel disc degeneration. L4-L5 disc protrusion with caudal migration of disc material. Additiona l small L3-L4 central disc protrusion. No evidence for significant spinal canal or neuroforamina sten osis of the lumbar spine. [facility], , 01/10/2025 10:32 AM
== END | disposition home or self-care (01) ==
LOC: RADMRIMAIN 16:59
PROVIDERS: ATTEND Family Medicine
DX: M51.362 Other intervertebral disc degeneration, lumbar region with discogenic back pain and lower extremity pain (principal); M41.34 Thoracogenic scoliosis, thoracic region; Z94.0 Kidney transplant status
CPT/HCPCS: 72148